=== PATIENT | male | born 1940 | race Caucasian/White ===

== ENCOUNTER 2020-10-16 13:32 | Inpatient (IN) ==
[2020-10-16] MEDS ORDERED: AZITHROMYCIN INJ 500 MG in SODIUM CHLORIDE 0.9% 250 ML IV STA (14:06)
[2020-10-16] MEDS ORDERED: cefTRIAXone 1,000 MG in SODIUM CHLORIDE 0.9% 100 ML IV STA (14:06)
[2020-10-16] MEDS ORDERED: ENOXAPARIN 100 MG/ML SYRINGE SUBCUT STA (14:32)
[2020-10-16] MEDS ORDERED: hydrALAZINE 20 MG/1 ML VIAL IV PRN (15:30)
[2020-10-16] MEDS ORDERED: DEXTROSE 50% 25 GM/50 ML VIAL IV PRN (15:30)
[2020-10-16] MEDS ORDERED: GLUCAGON 1 MG VIAL IM PRN (15:30)
[2020-10-16] MEDS ORDERED: MELATONIN 3 MG TABLET PO PRN (15:30)
[2020-10-16] MEDS ORDERED: ZALEPLON 5 MG CAPSULE PO PRN (15:30)
[2020-10-16] MEDS ORDERED: ONDANSETRON 4 MG/2 ML VIAL IV PRN (15:30)
[2020-10-16 16:03] LABS: Hematocrit 37.6 VOL% (42.0-52.0); Hemoglobin 12.4 GM/DL (14.0-18.0); Immature Granulocytes % 0.6 %; Immature Granulocytes Absolute 0.03 #; Lymphocytes # 0.3 10*3/uL (1.4-4.0); Lymphocytes % 6.2 % (21.2-54.2); Mean Corpuscular Volume 93.3 FL (87-102); Mean Platelet Volume 11.1 FL (9.6-12.0); Monocytes % 1.9 % (1.7-12.7); Neutrophils % 91.3 % (38.7-73.9); Platelet Count 142 T/CUMM (130-400); Red Blood Count 4.03 MC/CUMM (3.8-5.5); Red Cell Distribution Width 14.1 % (9.3-17.3); White Blood Count 5.3 T/CUMM (4-12)
[2020-10-16 16:16] LABS: Albumin 2.9 G/DL (3.4-5.0); Bilirubin,Total 0.9 MG/DL (0.2-1.0); Calcium 8.4 MG/DL (8.5-10.1); Ferritin 1305.7 ng/ml (26-388); Osmolality,Calculated 296.3 MOS/KG (273-304); Total Protein 7.5 G/DL (6.4-8.3)
[2020-10-16 16:29] LABS: Atypical Lymphocytes Few; Band Neutrophils 5 % (0-10); Lymphocytes 7 % (20-55); Platelet Estimate Adequate; Segmented Neutrophils 86 % (50-85); Total Cells Counted 100
[2020-10-16] MEDS: ENOXAPARIN 30 MG/0.3 ML SYRINGE SUBCUT SCH ×2 (20:48→21:13)
[2020-10-16] MEDS: FAMOTIDINE 20 MG TABLET PO SCH (20:48)
[2020-10-16] MEDS: ASCORBIC ACID 500 MG TABLET PO SCH (20:48)
[2020-10-16] MEDS: SODIUM CHLORIDE 0.9% 1,000 ML IV SCH (20:48)
[2020-10-16] MEDS: TERAZOSIN 5 MG CAPSULE PO SCH (22:08)
[2020-10-16] MEDS: carvediloL 6.25 MG TABLET PO SCH (22:08)
[2020-10-16] MEDS: DEXAMETHASONE 4 MG/1 ML VIAL IV SCH (22:14)
[2020-10-17] MEDS: SODIUM CHLORIDE 0.9% 1,000 ML IV SCH ×4 (03:35→20:30)
[2020-10-17 06:14] LABS: Hematocrit 35.5 VOL% (42.0-52.0); Hemoglobin 11.7 GM/DL (14.0-18.0); Immature Granulocytes % 1.3 %; Immature Granulocytes Absolute 0.07 #; Lymphocytes # 0.3 10*3/uL (1.4-4.0); Lymphocytes % 5.8 % (21.2-54.2); Mean Corpuscular Volume 94.2 FL (87-102); Mean Platelet Volume 11.6 FL (9.6-12.0); Monocytes % 3.6 % (1.7-12.7); Neutrophils % 89.3 % (38.7-73.9); Platelet Count 137 T/CUMM (130-400); Red Blood Count 3.77 MC/CUMM (3.8-5.5); Red Cell Distribution Width 14.1 % (9.3-17.3); White Blood Count 5.2 T/CUMM (4-12)
[2020-10-17 06:40] LABS: Albumin 2.3 G/DL (3.4-5.0); Bilirubin,Total 0.6 MG/DL (0.2-1.0); Calcium 8.1 MG/DL (8.5-10.1); Ferritin 1371.7 ng/ml (26-388); Osmolality,Calculated 305.7 MOS/KG (273-304); Total Protein 6.7 G/DL (6.4-8.3)
[2020-10-17 06:56] LABS: Hypochromasia Slight; Microcytosis 1+
[2020-10-17 06:57] LABS: Ovalocytes Few; Platelet Estimate Adequate
[2020-10-17 08:06] LABS: Sedimentation Rate-Westergren 69 MM/HR (0-20)
[2020-10-17] MEDS ORDERED: PANTOPRAZOLE 40 MG TABLET PO SCH (09:00)
[2020-10-17] MEDS ORDERED: REMDESIVIR 200 MG in SODIUM CHLORIDE 0.9% 210 ML IV ONE (09:00)
[2020-10-17] MEDS: AZITHROMYCIN 250 MG TABLET PO SCH (09:37)
[2020-10-17] MEDS: CETIRIZINE 10 MG TABLET PO SCH (09:38)
[2020-10-17] MEDS: FAMOTIDINE 20 MG TABLET PO SCH ×2 (09:38→20:15)
[2020-10-17] MEDS: ASCORBIC ACID 500 MG TABLET PO SCH ×2 (09:38→20:15)
[2020-10-17] MEDS: ENOXAPARIN 30 MG/0.3 ML SYRINGE SUBCUT SCH (09:38)
[2020-10-17] MEDS: ZINC GLUCONATE 50 MG TABLET PO SCH (09:39)
[2020-10-17] MEDS: CHOLECALCIFEROL 1,000 UNIT TABLET PO SCH (09:39)
[2020-10-17] MEDS: carvediloL 6.25 MG TABLET PO SCH ×2 (10:23→17:26)
[2020-10-17] MEDS ORDERED: SODIUM CHLORIDE 0.9% 1,000 ML IV PRN (14:40)
[2020-10-17] MEDS: cefTRIAXone 1,000 MG in SYRINGE 1 EACH IV SCH (15:04)
[2020-10-17] MEDS: TERAZOSIN 5 MG CAPSULE PO SCH (20:15)
[2020-10-17] MEDS: DEXAMETHASONE 4 MG/1 ML VIAL IV SCH (20:15)
[2020-10-17] MEDS: ATORVASTATIN 10 MG TABLET PO SCH (20:15)
[2020-10-18] MEDS ORDERED: SODIUM BICARBONATE 50 MEQ/50 ML SYRINGE IV ONE (01:04)
[2020-10-18] MEDS ORDERED: EPINEPHrine 1 MG/10 ML SYRINGE ONE (01:04)
[2020-10-18] MEDS ORDERED: ETOMIDATE 20 MG/10 ML VIAL IV ONE ×2 (01:04→01:21)
[2020-10-18] MEDS ORDERED: ROCURONIUM 100 MG/10 ML VIAL IV ONE (01:21)
[2020-10-18] MEDS ORDERED: METOPROLOL TARTRATE 5 MG/5 ML VIAL IV ONE ×2 (01:30→01:34)
[2020-10-18] MEDS ORDERED: DIGOXIN 0.5 MG/2 ML AMP IV ONE ×2 (03:06→09:15)
[2020-10-18 03:25] LABS: Allen Test Positive; Pt O2 Delivery Device Ventilator
[2020-10-18 03:26] LABS: ABG Base Excess -7.1 MMOL/L (-2.5-2.5); ABG HCO3 18.6 MMOL/L (20-26); ABG Oxygen Saturation 92.6 % (95-100); ABG PCO2 42.3 MM HG (35-48); ABG PH 7.273 (7.35-7.45); ABG PO2 76.7 MM HG (80-95); ABG TCO2 17.7 MMOL/L (23-27)
[2020-10-18 03:42] LABS: Basophils % 0.2 % (0.0-0.8); Hematocrit 33.4 VOL% (42.0-52.0); Hemoglobin 10.8 GM/DL (14.0-18.0); Immature Granulocytes % 1.4 %; Immature Granulocytes Absolute 0.16 #; Lymphocytes # 0.2 10*3/uL (1.4-4.0); Lymphocytes % 1.6 % (21.2-54.2); Mean Corpuscular HGB Conc 32.3 GM/DL (32-36); Mean Corpuscular Volume 94.9 FL (87-102); Mean Platelet Volume 11.9 FL (9.6-12.0); Monocytes % 2.5 % (1.7-12.7); Neutrophils % 94.3 % (38.7-73.9); Platelet Count 142 T/CUMM (130-400); Red Blood Count 3.52 MC/CUMM (3.8-5.5); Red Cell Distribution Width 14.5 % (9.3-17.3); White Blood Count 11.3 T/CUMM (4-12)
[2020-10-18 04:02] LABS: CKMB % 1.5 %; Hypochromasia 1+; Lymphocytes 1 % (20-55); Microcytosis 1+; Platelet Estimate Adequate; Segmented Neutrophils 98 % (50-85); Total Cells Counted 100
[2020-10-18 04:06] LABS: Troponin I 0.207 NG/ML (0.00-0.045)
[2020-10-18 04:07] LABS: Bilirubin,Total 0.4 MG/DL (0.2-1.0); Calcium 7.3 MG/DL (8.5-10.1); Osmolality,Calculated 315.4 MOS/KG (273-304)
[2020-10-18] MEDS: fentaNYL INJ 1,250 MCG in SODIUM CHLORIDE 0.9% 225 ML IV PRN ×6 (05:05→22:30)
[2020-10-18] MEDS: MIDAZOLAM 100 MG in SODIUM CHLORIDE 0.9% 80 ML IV PRN ×2 (05:05→15:47)
[2020-10-18] MEDS: PHENYLEPHRINE DRIP 40 MG/250 ML PREMIX IV PRN ×6 (05:40→21:34)
[2020-10-18] MEDS ORDERED: ASPIRIN EC 81 MG TABLET PO SCH (09:00)
[2020-10-18] MEDS ORDERED: amLODIPine 5 MG TABLET PO SCH (09:00)
[2020-10-18] MEDS: ENOXAPARIN 30 MG/0.3 ML SYRINGE SUBCUT SCH (09:13)
[2020-10-18] MEDS: ASCORBIC ACID 500 MG TABLET PO SCH ×2 (09:13→21:32)
[2020-10-18] MEDS: CHOLECALCIFEROL 1,000 UNIT TABLET PO SCH (09:13)
[2020-10-18] MEDS: FAMOTIDINE 20 MG TABLET PO SCH (09:13)
[2020-10-18] MEDS: FINASTERIDE 5 MG TABLET PO SCH (09:13)
[2020-10-18] MEDS: AZITHROMYCIN 250 MG TABLET PO SCH (09:13)
[2020-10-18] MEDS: CETIRIZINE 10 MG TABLET PO SCH (10:41)
[2020-10-18] MEDS: carvediloL 6.25 MG TABLET PO SCH (10:47)
[2020-10-18] MEDS: SODIUM CHLORIDE 0.9% 1,000 ML IV SCH ×2 (11:07→15:22)
[2020-10-18] MEDS: REMDESIVIR 100 MG in SODIUM CHLORIDE 0.9% 100 ML IV SCH (11:30)
[2020-10-18] MEDS: cefTRIAXone 1,000 MG in SYRINGE 1 EACH IV SCH (16:33)
[2020-10-18] MEDS: ENOXAPARIN 100 MG/ML SYRINGE SUBCUT SCH (16:33)
[2020-10-18] MEDS: DEXAMETHASONE 4 MG/1 ML VIAL IV SCH (21:32)
[2020-10-18] MEDS: TERAZOSIN 5 MG CAPSULE PO SCH (21:32)
[2020-10-18] MEDS: ATORVASTATIN 10 MG TABLET PO SCH (21:32)
[2020-10-19] MEDS: PHENYLEPHRINE DRIP 40 MG/250 ML PREMIX IV PRN ×4 (02:10→20:30)
[2020-10-19] MEDS: fentaNYL INJ 1,250 MCG in SODIUM CHLORIDE 0.9% 225 ML IV PRN ×6 (02:15→22:17)
[2020-10-19] MEDS: MIDAZOLAM 100 MG in SODIUM CHLORIDE 0.9% 80 ML IV PRN ×2 (02:45→14:53)
[2020-10-19 04:17] LABS: Basophils % 0.1 % (0.0-0.8); Hematocrit 34.4 VOL% (42.0-52.0); Hemoglobin 11.2 GM/DL (14.0-18.0); Immature Granulocytes % 0.9 %; Lymphocytes # 0.3 10*3/uL (1.4-4.0); Lymphocytes % 2.8 % (21.2-54.2); Mean Corpuscular HGB Conc 32.6 GM/DL (32-36); Mean Corpuscular Volume 95.6 FL (87-102); Mean Platelet Volume 11.8 FL (9.6-12.0); Monocytes % 2.3 % (1.7-12.7); Neutrophils % 93.9 % (38.7-73.9); Platelet Count 157 T/CUMM (130-400); Red Cell Distribution Width 14.6 % (9.3-17.3); White Blood Count 10.6 T/CUMM (4-12)
[2020-10-19 04:32] LABS: ABG Base Excess -7.6 MMOL/L (-2.5-2.5); ABG HCO3 18.4 MMOL/L (20-26); ABG Oxygen Saturation 98.9 % (95-100); ABG PCO2 36.7 MM HG (35-48); ABG PH 7.304 (7.35-7.45); ABG TCO2 15.8 MMOL/L (23-27); Allen Test Positive; Pt O2 Delivery Device Ventilator
[2020-10-19 04:36] LABS: Albumin 2.1 G/DL (3.4-5.0); Bilirubin,Total 0.4 MG/DL (0.2-1.0); Calcium 7.6 MG/DL (8.5-10.1); Osmolality,Calculated 325.6 MOS/KG (273-304); Total Protein 5.9 G/DL (6.4-8.3)
[2020-10-19 04:41] LABS: Hypochromasia 1+; Lymphocytes 1 % (20-55); Microcytosis 1+; Ovalocytes Slight; Platelet Estimate Adequate; Segmented Neutrophils 98 % (50-85); Total Cells Counted 100
[2020-10-19] MEDS: SODIUM CHLORIDE 0.9% 1,000 ML IV SCH ×2 (04:42→18:37)
[2020-10-19] MEDS: REMDESIVIR 100 MG in SODIUM CHLORIDE 0.9% 100 ML IV SCH (08:30)
[2020-10-19] MEDS: FINASTERIDE 5 MG TABLET PO SCH (08:32)
[2020-10-19] MEDS: CETIRIZINE 10 MG TABLET PO SCH (08:32)
[2020-10-19] MEDS: FAMOTIDINE 20 MG TABLET PO SCH (08:32)
[2020-10-19] MEDS: ASPIRIN CHEW 81 MG TABLET PO SCH (08:32)
[2020-10-19] MEDS: ZINC GLUCONATE 50 MG TABLET PO SCH (08:32)
[2020-10-19] MEDS: AZITHROMYCIN 250 MG TABLET PO SCH (08:32)
[2020-10-19] MEDS: ASCORBIC ACID 500 MG TABLET PO SCH ×2 (08:32→21:30)
[2020-10-19] MEDS: CHOLECALCIFEROL 1,000 UNIT TABLET PO SCH (08:33)
[2020-10-19] MEDS: ENOXAPARIN 100 MG/ML SYRINGE SUBCUT SCH (16:10)
[2020-10-19] MEDS: cefTRIAXone 1,000 MG in SYRINGE 1 EACH IV SCH (18:11)
[2020-10-19] MEDS: TERAZOSIN 5 MG CAPSULE PO SCH (21:30)
[2020-10-19] MEDS: ATORVASTATIN 10 MG TABLET PO SCH (21:30)
[2020-10-19] MEDS: DEXAMETHASONE 4 MG/1 ML VIAL IV SCH (21:46)
[2020-10-20 00:17] LABS: Calcium 7.4 MG/DL (8.5-10.1); Osmolality,Calculated 326.4 MOS/KG (273-304)
[2020-10-20] MEDS: fentaNYL INJ 2,500 MCG in SODIUM CHLORIDE 0.9% 450 ML IV PRN ×3 (00:30→14:51)
[2020-10-20] MEDS: MIDAZOLAM 100 MG in SODIUM CHLORIDE 0.9% 80 ML IV PRN ×2 (01:30→13:46)
[2020-10-20] MEDS: PHENYLEPHRINE DRIP 40 MG/250 ML PREMIX IV PRN ×3 (02:04→12:27)
[2020-10-20 04:06] LABS: Allen Test Positive; Pt O2 Delivery Device Ventilator
[2020-10-20 04:09] LABS: ABG Base Excess -9.1 MMOL/L (-2.5-2.5); ABG HCO3 16.5 MMOL/L (20-26); ABG Oxygen Saturation 95.5 % (95-100); ABG PH 7.292 (7.35-7.45); ABG PO2 87.8 MM HG (80-95); ABG TCO2 17.6 MMOL/L (23-27)
[2020-10-20 05:03] LABS: Basophils % 0.1 % (0.0-0.8); Hematocrit 38.2 VOL% (42.0-52.0); Immature Granulocytes % 1.3 %; Lymphocytes # 0.4 10*3/uL (1.4-4.0); Lymphocytes % 2.6 % (21.2-54.2); Mean Corpuscular HGB Conc 31.4 GM/DL (32-36); Mean Corpuscular Volume 97.2 FL (87-102); Mean Platelet Volume 11.6 FL (9.6-12.0); Monocytes % 3.2 % (1.7-12.7); Neutrophils % 92.8 % (38.7-73.9); Platelet Count 175 T/CUMM (130-400); Red Blood Count 3.93 MC/CUMM (3.8-5.5); Red Cell Distribution Width 15.2 % (9.3-17.3); White Blood Count 14.8 T/CUMM (4-12)
[2020-10-20 05:24] LABS: Calcium 7.5 MG/DL (8.5-10.1); Osmolality,Calculated 324.4 MOS/KG (273-304)
[2020-10-20 05:30] LABS: Burr Cells Slight; Hypochromasia 1+; Lymphocytes 2 % (20-55); Microcytosis 1+; Ovalocytes Slight; Platelet Estimate Adequate; Segmented Neutrophils 97 % (50-85); Total Cells Counted 100
[2020-10-20 05:46] LABS: Ferritin 1147.9 ng/ml (26-388)
[2020-10-20] MEDS: DIGOXIN 0.5 MG/2 ML AMP IV SCH (08:40)
[2020-10-20] MEDS: REMDESIVIR 100 MG in SODIUM CHLORIDE 0.9% 100 ML IV SCH (08:40)
[2020-10-20] MEDS: ASPIRIN CHEW 81 MG TABLET PO SCH (08:41)
[2020-10-20] MEDS: CETIRIZINE 10 MG TABLET PO SCH (08:41)
[2020-10-20] MEDS: ASCORBIC ACID 500 MG TABLET PO SCH ×2 (08:41→20:58)
[2020-10-20] MEDS: AZITHROMYCIN 250 MG TABLET PO SCH (08:41)
[2020-10-20] MEDS: FAMOTIDINE 20 MG TABLET PO SCH (08:42)
[2020-10-20] MEDS: CHOLECALCIFEROL 1,000 UNIT TABLET PO SCH (08:42)
[2020-10-20] MEDS: FINASTERIDE 5 MG TABLET PO SCH (08:44)
[2020-10-20] MEDS: cefTRIAXone 1,000 MG in SYRINGE 1 EACH IV SCH (14:18)
[2020-10-20] MEDS: ENOXAPARIN 100 MG/ML SYRINGE SUBCUT SCH (14:51)
[2020-10-20] MEDS ORDERED: PHENYLEPHRINE INJ 160 MG in SODIUM CHLORIDE 0.9% 234 ML IV PRN (14:58)
[2020-10-20] MEDS: PHENYLEPHRINE INJ 160 MG in DEXTROSE 5% 234 ML IV PRN (17:06)
[2020-10-20] MEDS: TERAZOSIN 5 MG CAPSULE PO SCH (20:58)
[2020-10-20] MEDS: ATORVASTATIN 10 MG TABLET PO SCH (20:59)
[2020-10-20] MEDS: DEXAMETHASONE 4 MG/1 ML VIAL IV SCH (20:59)
[2020-10-20] MEDS: fentaNYL INJ 2,500 MCG in DEXTROSE 5% 75 ML IV PRN (22:41)
[2020-10-21] MEDS: MIDAZOLAM 100 MG in SODIUM CHLORIDE 0.9% 80 ML IV PRN (01:25)
[2020-10-21 03:15] LABS: ABG Base Excess -10.7 MMOL/L (-2.5-2.5); ABG HCO3 16.3 MMOL/L (20-26); ABG Oxygen Saturation 97.3 % (95-100); ABG PCO2 40.2 MM HG (35-48); ABG PH 7.225 (7.35-7.45); ABG PO2 109.8 MM HG (80-95); ABG TCO2 17.5 MMOL/L (23-27)
[2020-10-21 04:34] LABS: Basophils % 0.2 % (0.0-0.8); Hematocrit 38.1 VOL% (42.0-52.0); Hemoglobin 11.6 GM/DL (14.0-18.0); Immature Granulocytes Absolute 0.34 #; Lymphocytes # 0.3 10*3/uL (1.4-4.0); Lymphocytes % 1.9 % (21.2-54.2); Mean Corpuscular HGB Conc 30.4 GM/DL (32-36); Mean Platelet Volume 11.6 FL (9.6-12.0); Monocytes % 2.9 % (1.7-12.7); Platelet Count 210 T/CUMM (130-400); Red Blood Count 3.81 MC/CUMM (3.8-5.5); Red Cell Distribution Width 15.9 % (9.3-17.3); White Blood Count 16.8 T/CUMM (4-12)
[2020-10-21 04:41] LABS: Calcium 7.8 MG/DL (8.5-10.1); Osmolality,Calculated 331.4 MOS/KG (273-304)
[2020-10-21 04:53] LABS: Nucleated Red Blood Cells 1 (0-5); Segmented Neutrophils 97 % (50-85); Total Cells Counted 100
[2020-10-21 04:54] LABS: Platelet Estimate Adequate
[2020-10-21 04:55] LABS: Hypochromasia 1+
[2020-10-21 04:56] LABS: Microcytosis 1+
[2020-10-21] MEDS: fentaNYL INJ 2,500 MCG in DEXTROSE 5% 75 ML IV PRN (05:38)
[2020-10-21] MEDS: PHENYLEPHRINE DRIP 40 MG/250 ML PREMIX IV PRN (06:21)
[2020-10-21] MEDS ORDERED: SODIUM POLYSTYRENE SULFATE 15 GM/60 ML BOTTLE PO ONE (08:06)
[2020-10-21] MEDS: REMDESIVIR 100 MG in SODIUM CHLORIDE 0.9% 100 ML IV SCH (08:30)
[2020-10-21] MEDS: ZINC GLUCONATE 50 MG TABLET PO SCH (08:44)
[2020-10-21] MEDS: ASCORBIC ACID 500 MG TABLET PO SCH ×2 (08:44→20:04)
[2020-10-21] MEDS: FAMOTIDINE 20 MG TABLET PO SCH (08:44)
[2020-10-21] MEDS: ASPIRIN CHEW 81 MG TABLET PO SCH (08:44)
[2020-10-21] MEDS: CHOLECALCIFEROL 1,000 UNIT TABLET PO SCH (08:44)
[2020-10-21] MEDS: FINASTERIDE 5 MG TABLET PO SCH (08:44)
[2020-10-21] MEDS: CETIRIZINE 10 MG TABLET PO SCH (08:45)
[2020-10-21] MEDS: PHENYLEPHRINE INJ 160 MG in DEXTROSE 5% 234 ML IV PRN ×2 (12:08→23:26)
[2020-10-21] MEDS ORDERED: SODIUM BICARBONATE 50 MEQ/50 ML VIAL IV ONE (13:03)
[2020-10-21] MEDS: cefTRIAXone 1,000 MG in SYRINGE 1 EACH IV SCH (14:46)
[2020-10-21] MEDS: ENOXAPARIN 100 MG/ML SYRINGE SUBCUT SCH (14:47)
[2020-10-21] MEDS: DEXAMETHASONE 4 MG/1 ML VIAL IV SCH (20:03)
[2020-10-21] MEDS: TERAZOSIN 5 MG CAPSULE PO SCH (20:04)
[2020-10-21] MEDS: ATORVASTATIN 10 MG TABLET PO SCH (20:04)
[2020-10-22 03:46] LABS: ABG Base Excess -9.2 MMOL/L (-2.5-2.5); ABG HCO3 17.1 MMOL/L (20-26); ABG Oxygen Saturation 99.2 % (95-100); ABG PCO2 43.7 MM HG (35-48); ABG TCO2 16.6 MMOL/L (23-27)
[2020-10-22 05:56] LABS: Basophils % 0.3 % (0.0-0.8); Hematocrit 40.3 VOL% (42.0-52.0); Hemoglobin 12.3 GM/DL (14.0-18.0); Immature Granulocytes Absolute 0.54 #; Lymphocytes # 0.3 10*3/uL (1.4-4.0); Lymphocytes % 2.1 % (21.2-54.2); Mean Corpuscular HGB Conc 30.5 GM/DL (32-36); Mean Platelet Volume 12.1 FL (9.6-12.0); Monocytes % 2.6 % (1.7-12.7); Platelet Count 167 T/CUMM (130-400); Red Blood Count 4.03 MC/CUMM (3.8-5.5); Red Cell Distribution Width 16.1 % (9.3-17.3); White Blood Count 13.6 T/CUMM (4-12)
[2020-10-22 06:14] LABS: Calcium 8.3 MG/DL (8.5-10.1); Osmolality,Calculated 330.7 MOS/KG (273-304)
[2020-10-22 07:50] LABS: Hypochromasia 1+; Lymphocytes 2 % (20-55); Segmented Neutrophils 94 % (50-85); Total Cells Counted 100
[2020-10-22 07:51] LABS: Microcytosis 1+; Platelet Estimate Adequate
[2020-10-22] MEDS: FINASTERIDE 5 MG TABLET PO SCH (08:29)
[2020-10-22] MEDS: ASCORBIC ACID 500 MG TABLET PO SCH ×2 (08:29→21:07)
[2020-10-22] MEDS: FAMOTIDINE 20 MG TABLET PO SCH (08:29)
[2020-10-22] MEDS: CETIRIZINE 10 MG TABLET PO SCH (08:29)
[2020-10-22] MEDS: ASPIRIN CHEW 81 MG TABLET PO SCH (08:29)
[2020-10-22] MEDS: CHOLECALCIFEROL 1,000 UNIT TABLET PO SCH (08:29)
[2020-10-22] MEDS: DIGOXIN 0.5 MG/2 ML AMP IV SCH (08:29)
[2020-10-22] MEDS: SODIUM BICARBONATE 50 MEQ/50 ML VIAL IV SCH ×2 (08:38→16:17)
[2020-10-22] MEDS ORDERED: CISATRACURIUM 10 MG/5 ML VIAL IV ONE (11:30)
[2020-10-22] MEDS: PHENYLEPHRINE INJ 160 MG in DEXTROSE 5% 234 ML IV PRN (11:39)
[2020-10-22] MEDS ORDERED: SODIUM POLYSTYRENE SULFATE 15 GM/60 ML BOTTLE PO ONE (13:27)
[2020-10-22] MEDS: MIDAZOLAM 100 MG in SODIUM CHLORIDE 0.9% 80 ML IV PRN (14:15)
[2020-10-22 14:29] LABS: ABG Base Excess -10.5 MMOL/L (-2.5-2.5); ABG HCO3 19.8 MMOL/L (20-26); ABG PCO2 62.6 MM HG (35-48); ABG PO2 94.1 MM HG (80-95); ABG TCO2 21.7 MMOL/L (23-27); Allen Test Positive; Pt O2 Delivery Device Ventilator
[2020-10-22 14:32] LABS: ABG Oxygen Saturation 21.7 % (95-100); ABG PH 7.117 (7.35-7.45)
[2020-10-22] MEDS: cefTRIAXone 1,000 MG in SYRINGE 1 EACH IV SCH (15:00)
[2020-10-22] MEDS: FUROSEMIDE 40 MG/4 ML VIAL IV SCH ×2 (15:02→21:07)
[2020-10-22] MEDS: ENOXAPARIN 100 MG/ML SYRINGE SUBCUT SCH (16:16)
[2020-10-22] MEDS: CISATRACURIUM 200 MG in SODIUM CHLORIDE 0.9% 180 ML IV PRN (16:17)
[2020-10-22] MEDS: fentaNYL INJ 2,500 MCG in DEXTROSE 5% 75 ML IV PRN ×2 (16:37→23:28)
[2020-10-22] MEDS: DEXAMETHASONE 4 MG/1 ML VIAL IV SCH (21:06)
[2020-10-22] MEDS: ATORVASTATIN 10 MG TABLET PO SCH (21:07)
[2020-10-22] MEDS: TERAZOSIN 5 MG CAPSULE PO SCH (21:07)
[2020-10-23] MEDS: SODIUM BICARBONATE 50 MEQ/50 ML VIAL IV SCH ×2 (01:57→08:22)
[2020-10-23] MEDS: fentaNYL INJ 2,500 MCG in DEXTROSE 5% 75 ML IV PRN ×5 (03:44→23:47)
[2020-10-23] MEDS: MIDAZOLAM 100 MG in SODIUM CHLORIDE 0.9% 80 ML IV PRN ×2 (03:49→16:03)
[2020-10-23 04:47] LABS: ABG Base Excess -6.6 MMOL/L (-2.5-2.5); ABG HCO3 20.8 MMOL/L (20-26); ABG Oxygen Saturation 99.2 % (95-100); ABG PCO2 49.8 MM HG (35-48); ABG PH 7.239 (7.35-7.45); ABG PO2 243.8 MM HG (80-95); ABG TCO2 22.3 MMOL/L (23-27); Allen Test Positive; Pt O2 Delivery Device Ventilator
[2020-10-23] MEDS: FUROSEMIDE 40 MG/4 ML VIAL IV SCH (06:00)
[2020-10-23 06:02] LABS: Basophils % 0.3 % (0.0-0.8); Hematocrit 39.7 VOL% (42.0-52.0); Hemoglobin 11.8 GM/DL (14.0-18.0); Immature Granulocytes % 2.6 %; Immature Granulocytes Absolute 0.34 #; Lymphocytes # 0.3 10*3/uL (1.4-4.0); Lymphocytes % 1.9 % (21.2-54.2); Mean Corpuscular HGB Conc 29.7 GM/DL (32-36); Mean Corpuscular Volume 103.4 FL (87-102); Monocytes % 3.6 % (1.7-12.7); Neutrophils % 91.6 % (38.7-73.9); Platelet Count 185 T/CUMM (130-400); Red Blood Count 3.84 MC/CUMM (3.8-5.5); Red Cell Distribution Width 16.3 % (9.3-17.3); White Blood Count 13.3 T/CUMM (4-12)
[2020-10-23 07:11] LABS: Albumin 1.8 G/DL (3.4-5.0); Bilirubin,Total 0.5 MG/DL (0.2-1.0); Calcium 8.4 MG/DL (8.5-10.1); Osmolality,Calculated 341.3 MOS/KG (273-304); Total Protein 5.9 G/DL (6.4-8.3)
[2020-10-23 07:26] LABS: Segmented Neutrophils 96 % (50-85); Total Cells Counted 100
[2020-10-23 07:31] LABS: Platelet Estimate Adequate; Polychromasia Slight
[2020-10-23 07:32] LABS: Macrocytosis Slight
[2020-10-23] MEDS: FINASTERIDE 5 MG TABLET PO SCH (08:21)
[2020-10-23] MEDS: FAMOTIDINE 20 MG TABLET PO SCH (08:21)
[2020-10-23] MEDS: ASPIRIN CHEW 81 MG TABLET PO SCH (08:21)
[2020-10-23] MEDS: ASCORBIC ACID 500 MG TABLET PO SCH ×2 (08:21→20:16)
[2020-10-23] MEDS: CETIRIZINE 10 MG TABLET PO SCH (08:22)
[2020-10-23] MEDS: CHOLECALCIFEROL 1,000 UNIT TABLET PO SCH (08:22)
[2020-10-23] MEDS: CISATRACURIUM 200 MG in SODIUM CHLORIDE 0.9% 180 ML IV PRN ×2 (08:47→21:44)
[2020-10-23] MEDS: PHENYLEPHRINE INJ 160 MG in DEXTROSE 5% 234 ML IV PRN (09:05)
[2020-10-23] MEDS ORDERED: BISACODYL 5 MG TABLET PO PRN (10:56)
[2020-10-23] MEDS: METOCLOPRAMIDE 10 MG/2 ML VIAL IV SCH ×2 (12:15→18:30)
[2020-10-23] MEDS: SODIUM CHLORIDE 23.4% CONC INJ 38.5 MEQ in STERILE WATER INJ 1,000 ML IV SCH ×2 (12:31→22:49)
[2020-10-23] MEDS ORDERED: SODIUM POLYSTYRENE SULFATE 15 GM/60 ML BOTTLE PO ONE (14:46)
[2020-10-23] MEDS: cefTRIAXone 1,000 MG in SYRINGE 1 EACH IV SCH (15:41)
[2020-10-23] MEDS: ENOXAPARIN 100 MG/ML SYRINGE SUBCUT SCH (15:55)
[2020-10-23] MEDS: DOCUSATE SODIUM 100 MG/10 ML UDCUP PO SCH (20:16)
[2020-10-23] MEDS: ATORVASTATIN 10 MG TABLET PO SCH (20:16)
[2020-10-23] MEDS: DEXAMETHASONE 4 MG/1 ML VIAL IV SCH (20:17)
[2020-10-24] MEDS: METOCLOPRAMIDE 10 MG/2 ML VIAL IV SCH ×4 (00:15→18:12)
[2020-10-24] MEDS: MIDAZOLAM 100 MG in SODIUM CHLORIDE 0.9% 80 ML IV PRN ×3 (03:00→23:46)
[2020-10-24] MEDS: fentaNYL INJ 2,500 MCG in DEXTROSE 5% 75 ML IV PRN ×3 (04:21→21:19)
[2020-10-24 04:26] LABS: Basophils % 0.2 % (0.0-0.8); Hematocrit 39.2 VOL% (42.0-52.0); Hemoglobin 11.9 GM/DL (14.0-18.0); Immature Granulocytes % 4.5 %; Lymphocytes # 0.2 10*3/uL (1.4-4.0); Lymphocytes % 1.2 % (21.2-54.2); Mean Corpuscular HGB Conc 30.4 GM/DL (32-36); Mean Corpuscular Volume 101.6 FL (87-102); Mean Platelet Volume 12.2 FL (9.6-12.0); Monocytes % 4.3 % (1.7-12.7); Neutrophils % 89.8 % (38.7-73.9); Platelet Count 207 T/CUMM (130-400); Red Blood Count 3.86 MC/CUMM (3.8-5.5); Red Cell Distribution Width 16.1 % (9.3-17.3); White Blood Count 13.4 T/CUMM (4-12)
[2020-10-24 04:50] LABS: Calcium 8.3 MG/DL (8.5-10.1)
[2020-10-24 04:59] LABS: ABG Base Excess -7.4 MMOL/L (-2.5-2.5); ABG HCO3 19.6 MMOL/L (20-26); ABG Oxygen Saturation 96.2 % (95-100); ABG PCO2 45.4 MM HG (35-48); ABG PH 7.253 (7.35-7.45); ABG PO2 92.5 MM HG (80-95)
[2020-10-24 06:27] LABS: Hypochromasia 2+; Lymphocytes 2 % (20-55); Platelet Estimate Normal; Segmented Neutrophils 90 % (50-85); Total Cells Counted 100
[2020-10-24] MEDS: SODIUM CHLORIDE 23.4% CONC INJ 38.5 MEQ in STERILE WATER INJ 1,000 ML IV SCH (06:30)
[2020-10-24] MEDS: FINASTERIDE 5 MG TABLET PO SCH (08:11)
[2020-10-24] MEDS: ASPIRIN CHEW 81 MG TABLET PO SCH (08:11)
[2020-10-24] MEDS: ASCORBIC ACID 500 MG TABLET PO SCH ×2 (08:11→21:21)
[2020-10-24] MEDS: DOCUSATE SODIUM 100 MG/10 ML UDCUP PO SCH ×2 (08:11→21:17)
[2020-10-24] MEDS: CHOLECALCIFEROL 1,000 UNIT TABLET PO SCH (08:12)
[2020-10-24] MEDS: FAMOTIDINE 20 MG TABLET PO SCH (08:12)
[2020-10-24] MEDS: CETIRIZINE 10 MG TABLET PO SCH (08:12)
[2020-10-24] MEDS: DIGOXIN 0.5 MG/2 ML AMP IV SCH (08:13)
[2020-10-24] MEDS: PHENYLEPHRINE INJ 160 MG in DEXTROSE 5% 234 ML IV PRN (11:06)
[2020-10-24] MEDS: SODIUM BICARB INJ 50 MEQ in DEXTROSE 5% 1,000 ML IV SCH ×2 (11:06→21:18)
[2020-10-24] MEDS: CISATRACURIUM 200 MG in SODIUM CHLORIDE 0.9% 180 ML IV PRN (11:07)
[2020-10-24] MEDS: ENOXAPARIN 100 MG/ML SYRINGE SUBCUT SCH (16:30)
[2020-10-24] MEDS: ALBUMIN 25% 25 GM in PREMIX 1 EACH IV SCH (21:18)
[2020-10-24] MEDS: DEXAMETHASONE 4 MG/1 ML VIAL IV SCH (21:20)
[2020-10-24] MEDS: ATORVASTATIN 10 MG TABLET PO SCH (21:21)
[2020-10-25] MEDS: METOCLOPRAMIDE 10 MG/2 ML VIAL IV SCH ×4 (00:39→18:22)
[2020-10-25] MEDS: CISATRACURIUM 200 MG in SODIUM CHLORIDE 0.9% 180 ML IV PRN (00:53)
[2020-10-25 04:35] LABS: Allen Test Positive; Pt O2 Delivery Device Ventilator
[2020-10-25 04:42] LABS: Basophils % 0.2 % (0.0-0.8); Hematocrit 34.4 VOL% (42.0-52.0); Hemoglobin 10.4 GM/DL (14.0-18.0); Immature Granulocytes % 5.2 %; Immature Granulocytes Absolute 0.54 #; Lymphocytes # 0.2 10*3/uL (1.4-4.0); Lymphocytes % 2.2 % (21.2-54.2); Mean Corpuscular HGB Conc 30.2 GM/DL (32-36); Mean Corpuscular Volume 101.2 FL (87-102); Mean Platelet Volume 12.5 FL (9.6-12.0); Monocytes % 3.5 % (1.7-12.7); Neutrophils % 88.9 % (38.7-73.9); Platelet Count 134 T/CUMM (130-400); Red Cell Distribution Width 15.7 % (9.3-17.3); White Blood Count 10.4 T/CUMM (4-12)
[2020-10-25 04:42] LABS: ABG Base Excess -5.3 MMOL/L (-2.5-2.5); ABG Oxygen Saturation 96.5 % (95-100); ABG PCO2 47.4 MM HG (35-48); ABG PO2 98.9 MM HG (80-95)
[2020-10-25 05:08] LABS: Hypochromasia Slight; Microcytosis Slight; Ovalocytes Slight; Platelet Estimate Adequate
[2020-10-25 05:26] LABS: Calcium 7.9 MG/DL (8.5-10.1); Osmolality,Calculated 341.4 MOS/KG (273-304)
[2020-10-25 05:31] LABS: Ferritin 718.9 ng/ml (26-388)
[2020-10-25] MEDS: SODIUM BICARB INJ 50 MEQ in DEXTROSE 5% 1,000 ML IV SCH ×3 (06:26→20:32)
[2020-10-25] MEDS: DOCUSATE SODIUM 100 MG/10 ML UDCUP PO SCH ×2 (09:31→20:34)
[2020-10-25] MEDS: FAMOTIDINE 20 MG TABLET PO SCH (09:31)
[2020-10-25] MEDS: CETIRIZINE 10 MG TABLET PO SCH (09:31)
[2020-10-25] MEDS: ASPIRIN CHEW 81 MG TABLET PO SCH (09:31)
[2020-10-25] MEDS: FINASTERIDE 5 MG TABLET PO SCH (09:31)
[2020-10-25] MEDS: ASCORBIC ACID 500 MG TABLET PO SCH ×2 (09:31→20:33)
[2020-10-25] MEDS: CHOLECALCIFEROL 1,000 UNIT TABLET PO SCH (09:31)
[2020-10-25] MEDS: ALBUMIN 25% 25 GM in PREMIX 1 EACH IV SCH ×2 (09:36→20:33)
[2020-10-25] MEDS: PHENYLEPHRINE INJ 160 MG in DEXTROSE 5% 234 ML IV PRN (11:30)
[2020-10-25] MEDS: fentaNYL INJ 2,500 MCG in DEXTROSE 5% 75 ML IV PRN (15:11)
[2020-10-25] MEDS: MIDAZOLAM 100 MG in SODIUM CHLORIDE 0.9% 80 ML IV PRN (15:59)
[2020-10-25] MEDS: ENOXAPARIN 100 MG/ML SYRINGE SUBCUT SCH (16:23)
[2020-10-25] MEDS: ALBUTEROL INHALER 18 GM INH SCH ×2 (16:23→19:46)
[2020-10-25] MEDS: DEXAMETHASONE 4 MG/1 ML VIAL IV SCH (20:33)
[2020-10-25] MEDS: ATORVASTATIN 10 MG TABLET PO SCH (20:34)
[2020-10-26] MEDS: METOCLOPRAMIDE 10 MG/2 ML VIAL IV SCH ×4 (00:52→18:38)
[2020-10-26] MEDS: ALBUTEROL INHALER 18 GM INH SCH ×4 (02:20→20:39)
[2020-10-26] MEDS: MIDAZOLAM 100 MG in SODIUM CHLORIDE 0.9% 80 ML IV PRN (02:28)
[2020-10-26] MEDS: fentaNYL INJ 2,500 MCG in DEXTROSE 5% 75 ML IV PRN (02:29)
[2020-10-26 04:07] LABS: Allen Test Positive; Pt O2 Delivery Device Ventilator
[2020-10-26 04:13] LABS: ABG Base Excess -2.3 MMOL/L (-2.5-2.5); ABG HCO3 22.5 MMOL/L (20-26); ABG PCO2 45.9 MM HG (35-48); ABG PH 7.322 (7.35-7.45); ABG TCO2 22.3 MMOL/L (23-27)
[2020-10-26] MEDS: SODIUM BICARB INJ 50 MEQ in DEXTROSE 5% 1,000 ML IV SCH ×2 (06:38→17:43)
[2020-10-26] MEDS: ASCORBIC ACID 500 MG TABLET PO SCH ×2 (08:25→20:39)
[2020-10-26] MEDS: FINASTERIDE 5 MG TABLET PO SCH (08:25)
[2020-10-26] MEDS: ASPIRIN CHEW 81 MG TABLET PO SCH (08:25)
[2020-10-26] MEDS: DOCUSATE SODIUM 100 MG/10 ML UDCUP PO SCH ×2 (08:25→20:39)
[2020-10-26] MEDS: CHOLECALCIFEROL 1,000 UNIT TABLET PO SCH (08:25)
[2020-10-26] MEDS: CETIRIZINE 10 MG TABLET PO SCH (08:25)
[2020-10-26] MEDS: FAMOTIDINE 20 MG TABLET PO SCH (08:25)
[2020-10-26] MEDS: ALBUMIN 25% 25 GM in PREMIX 1 EACH IV SCH (08:28)
[2020-10-26] MEDS ORDERED: FUROSEMIDE 40 MG/4 ML VIAL IV ONE (08:45)
[2020-10-26] MEDS: methylPREDNISolone SOD SUC 40 MG/1 ML VIAL IV SCH ×2 (10:42→18:38)
[2020-10-26 10:52] LABS: Basophils % 0.1 % (0.0-0.8); Hematocrit 26.8 VOL% (42.0-52.0); Hemoglobin 8.7 GM/DL (14.0-18.0); Immature Granulocytes % 2.1 %; Immature Granulocytes Absolute 0.17 #; Lymphocytes # 0.3 10*3/uL (1.4-4.0); Mean Corpuscular HGB Conc 32.5 GM/DL (32-36); Mean Corpuscular Volume 96.1 FL (87-102); Mean Platelet Volume 12.5 FL (9.6-12.0); Monocytes % 4.6 % (1.7-12.7); Neutrophils % 90.2 % (38.7-73.9); Platelet Count 109 T/CUMM (130-400); Red Blood Count 2.79 MC/CUMM (3.8-5.5); Red Cell Distribution Width 14.7 % (9.3-17.3); White Blood Count 8.3 T/CUMM (4-12)
[2020-10-26 11:12] LABS: Hypochromasia Slight; Lymphocytes 1 % (20-55); Microcytosis Slight; Myelocytes 1 %; Segmented Neutrophils 95 % (50-85); Total Cells Counted 100
[2020-10-26 11:13] LABS: Platelet Estimate Decreased
[2020-10-26 11:17] LABS: Calcium 7.9 MG/DL (8.5-10.1); Osmolality,Calculated 338.6 MOS/KG (273-304)
[2020-10-26] MEDS: INSULIN LISPRO 100 UNIT/ML SUBCUT SCH ×2 (13:39→17:44)
[2020-10-26] MEDS: ENOXAPARIN 100 MG/ML SYRINGE SUBCUT SCH (16:16)
[2020-10-26] MEDS: ATORVASTATIN 10 MG TABLET PO SCH (20:39)
[2020-10-27] MEDS: INSULIN LISPRO 100 UNIT/ML SUBCUT SCH ×4 (00:12→18:10)
[2020-10-27] MEDS: ALBUTEROL INHALER 18 GM INH SCH ×4 (00:32→20:05)
[2020-10-27] MEDS: METOCLOPRAMIDE 10 MG/2 ML VIAL IV SCH ×4 (00:32→17:01)
[2020-10-27] MEDS: methylPREDNISolone SOD SUC 40 MG/1 ML VIAL IV SCH ×3 (00:32→17:01)
[2020-10-27 03:21] LABS: ABG Base Excess 0.2 MMOL/L (-2.5-2.5); ABG HCO3 24.6 MMOL/L (20-26); ABG Oxygen Saturation 97.3 % (95-100); ABG PCO2 56.8 MM HG (35-48); ABG PH 7.291 (7.35-7.45); ABG TCO2 25.8 MMOL/L (23-27)
[2020-10-27] MEDS: SODIUM BICARB INJ 50 MEQ in DEXTROSE 5% 1,000 ML IV SCH (05:03)
[2020-10-27 05:25] LABS: Basophils % 0.1 % (0.0-0.8); Hematocrit 24.2 VOL% (42.0-52.0); Hemoglobin 7.8 GM/DL (14.0-18.0); Immature Granulocytes Absolute 0.29 #; Lymphocytes # 0.2 10*3/uL (1.4-4.0); Lymphocytes % 1.2 % (21.2-54.2); Mean Corpuscular HGB Conc 32.2 GM/DL (32-36); Mean Corpuscular Volume 96.8 FL (87-102); Mean Platelet Volume 12.9 FL (9.6-12.0); Monocytes % 3.8 % (1.7-12.7); Neutrophils % 92.9 % (38.7-73.9); Platelet Count 120 T/CUMM (130-400); Red Cell Distribution Width 14.4 % (9.3-17.3); White Blood Count 14.4 T/CUMM (4-12)
[2020-10-27 06:07] LABS: Lymphocytes 2 % (20-55); Platelet Estimate Normal; Segmented Neutrophils 96 % (50-85); Total Cells Counted 100
[2020-10-27 06:08] LABS: Calcium 7.8 MG/DL (8.5-10.1); Hypochromasia 1+; Osmolality,Calculated 343.1 MOS/KG (273-304)
[2020-10-27] MEDS: fentaNYL INJ 2,500 MCG in DEXTROSE 5% 75 ML IV PRN ×2 (07:59→20:15)
[2020-10-27] MEDS: MIDAZOLAM 100 MG in SODIUM CHLORIDE 0.9% 80 ML IV PRN ×2 (07:59→19:32)
[2020-10-27] MEDS: ASPIRIN CHEW 81 MG TABLET PO SCH (08:15)
[2020-10-27] MEDS: ASCORBIC ACID 500 MG TABLET PO SCH ×2 (08:15→20:39)
[2020-10-27] MEDS: CHOLECALCIFEROL 1,000 UNIT TABLET PO SCH (08:15)
[2020-10-27] MEDS: DOCUSATE SODIUM 100 MG/10 ML UDCUP PO SCH ×2 (08:15→20:39)
[2020-10-27] MEDS: FAMOTIDINE 20 MG TABLET PO SCH (08:16)
[2020-10-27] MEDS: CETIRIZINE 10 MG TABLET PO SCH (08:16)
[2020-10-27] MEDS: FINASTERIDE 5 MG TABLET PO SCH (08:16)
[2020-10-27] MEDS: PIPERACILLIN/TAZOBACTAM 3,375 MG in SODIUM CHLORIDE 0.9% 100 ML IV SCH ×2 (11:46→22:39)
[2020-10-27] MEDS: DEXTROSE 5% 1,000 ML IV SCH ×2 (11:47→22:39)
[2020-10-27] MEDS: PHENYLEPHRINE INJ 160 MG in DEXTROSE 5% 234 ML IV PRN (15:21)
[2020-10-27] MEDS: ENOXAPARIN 100 MG/ML SYRINGE SUBCUT SCH (17:01)
[2020-10-27] MEDS: ATORVASTATIN 10 MG TABLET PO SCH (20:39)
[2020-10-28] MEDS: METOCLOPRAMIDE 10 MG/2 ML VIAL IV SCH ×4 (00:40→17:57)
[2020-10-28] MEDS: INSULIN LISPRO 100 UNIT/ML SUBCUT SCH ×4 (00:40→17:28)
[2020-10-28] MEDS: ALBUTEROL INHALER 18 GM INH SCH ×4 (01:07→18:00)
[2020-10-28] MEDS: methylPREDNISolone SOD SUC 40 MG/1 ML VIAL IV SCH ×4 (01:07→17:55)
[2020-10-28 04:24] LABS: ABG Base Excess 0.9 MMOL/L (-2.5-2.5); ABG HCO3 27.8 MMOL/L (20-26); ABG Oxygen Saturation 91.6 % (95-100); ABG PCO2 59.2 MM HG (35-48); ABG PO2 70.6 MM HG (80-95); ABG TCO2 29.6 MMOL/L (23-27); Allen Test Positive; Pt O2 Delivery Device Ventilator
[2020-10-28 04:36] LABS: Basophils % 0.1 % (0.0-0.8); Hematocrit 22.4 VOL% (42.0-52.0); Hemoglobin 7.2 GM/DL (14.0-18.0); Immature Granulocytes % 2.7 %; Immature Granulocytes Absolute 0.51 #; Lymphocytes # 0.3 10*3/uL (1.4-4.0); Lymphocytes % 1.4 % (21.2-54.2); Mean Corpuscular HGB Conc 32.1 GM/DL (32-36); Mean Corpuscular Volume 97.8 FL (87-102); Monocytes % 3.2 % (1.7-12.7); NRBC # 0.02 10*3/uL; Neutrophils % 92.6 % (38.7-73.9); Platelet Count 117 T/CUMM (130-400); Red Blood Count 2.29 MC/CUMM (3.8-5.5); Red Cell Distribution Width 14.9 % (9.3-17.3); White Blood Count 19.2 T/CUMM (4-12)
[2020-10-28 04:58] LABS: Calcium 7.7 MG/DL (8.5-10.1); Osmolality,Calculated 339.4 MOS/KG (273-304)
[2020-10-28 05:01] LABS: Hypochromasia 2+; Lymphocytes 1 % (20-55); Microcytosis 1+; Nucleated Red Blood Cells 1 (0-5); Platelet Estimate Decreased; Segmented Neutrophils 96 % (50-85); Total Cells Counted 100
[2020-10-28] MEDS: MIDAZOLAM 100 MG in SODIUM CHLORIDE 0.9% 80 ML IV PRN ×2 (06:47→18:12)
[2020-10-28] MEDS: CHOLECALCIFEROL 1,000 UNIT TABLET PO SCH (08:33)
[2020-10-28] MEDS: CETIRIZINE 10 MG TABLET PO SCH (08:33)
[2020-10-28] MEDS: DOCUSATE SODIUM 100 MG/10 ML UDCUP PO SCH ×2 (08:33→20:13)
[2020-10-28] MEDS: FAMOTIDINE 20 MG TABLET PO SCH (08:33)
[2020-10-28] MEDS: ASCORBIC ACID 500 MG TABLET PO SCH ×2 (08:33→20:13)
[2020-10-28] MEDS: FINASTERIDE 5 MG TABLET PO SCH (08:33)
[2020-10-28] MEDS: ASPIRIN CHEW 81 MG TABLET PO SCH (08:33)
[2020-10-28] MEDS: fentaNYL INJ 2,500 MCG in DEXTROSE 5% 75 ML IV PRN ×2 (09:08→21:29)
[2020-10-28] MEDS: DEXTROSE 5% 1,000 ML IV SCH (09:44)
[2020-10-28] MEDS: PIPERACILLIN/TAZOBACTAM 3,375 MG in SODIUM CHLORIDE 0.9% 100 ML IV SCH ×2 (11:25→22:31)
[2020-10-28] MEDS: PHENYLEPHRINE INJ 160 MG in DEXTROSE 5% 234 ML IV PRN (12:06)
[2020-10-28] MEDS: ENOXAPARIN 100 MG/ML SYRINGE SUBCUT SCH (15:45)
[2020-10-28] MEDS: ATORVASTATIN 10 MG TABLET PO SCH (20:13)
[2020-10-29] MEDS: METOCLOPRAMIDE 10 MG/2 ML VIAL IV SCH ×4 (00:39→17:52)
[2020-10-29] MEDS: DEXTROSE 5% 1,000 ML IV SCH ×2 (01:13→20:47)
[2020-10-29] MEDS: INSULIN LISPRO 100 UNIT/ML SUBCUT SCH ×4 (01:14→18:23)
[2020-10-29] MEDS: ALBUTEROL INHALER 18 GM INH SCH ×4 (01:15→20:47)
[2020-10-29] MEDS: methylPREDNISolone SOD SUC 40 MG/1 ML VIAL IV SCH ×3 (01:15→17:51)
[2020-10-29 04:39] LABS: Hematocrit 19.9 VOL% (42.0-52.0); Immature Granulocytes % 2.7 %; Immature Granulocytes Absolute 0.59 #; Lymphocytes # 0.4 10*3/uL (1.4-4.0); Lymphocytes % 1.6 % (21.2-54.2); Mean Corpuscular HGB Conc 30.7 GM/DL (32-36); Mean Corpuscular Volume 98.5 FL (87-102); Mean Platelet Volume 13.4 FL (9.6-12.0); Monocytes % 2.9 % (1.7-12.7); NRBC # 0.03 10*3/uL; Neutrophils % 92.8 % (38.7-73.9); Platelet Count 123 T/CUMM (130-400); Red Blood Count 2.02 MC/CUMM (3.8-5.5); Red Cell Distribution Width 14.6 % (9.3-17.3); White Blood Count 21.8 T/CUMM (4-12)
[2020-10-29 04:49] LABS: Hemoglobin 6.1 GM/DL (14.0-18.0)
[2020-10-29 04:49] LABS: ABG Base Excess -1.4 MMOL/L (-2.5-2.5); ABG HCO3 23.2 MMOL/L (20-26); ABG Oxygen Saturation 99.4 % (95-100); ABG PCO2 59.7 MM HG (35-48); ABG PH 7.248 (7.35-7.45); ABG TCO2 25.3 MMOL/L (23-27); Allen Test Positive; Pt O2 Delivery Device Ventilator
[2020-10-29] MEDS ORDERED: SODIUM CHLORIDE 0.9% 1,000 ML IV PRN (04:53)
[2020-10-29 04:54] LABS: Calcium 7.6 MG/DL (8.5-10.1); Osmolality,Calculated 340.8 MOS/KG (273-304)
[2020-10-29 05:10] LABS: INR 3.8
[2020-10-29 05:13] LABS: Band Neutrophils 2 % (0-10); Platelet Estimate Normal; Segmented Neutrophils 98 % (50-85)
[2020-10-29 05:15] LABS: Hypochromasia 2+
[2020-10-29 05:16] LABS: Total Cells Counted 100
[2020-10-29 05:18] LABS: PT Patient Result 38.4 SECS (9.8-11.9); Partial Thromboplastin Time 78.3 SECS (23.9-33.8)
[2020-10-29] MEDS: MIDAZOLAM 100 MG in SODIUM CHLORIDE 0.9% 80 ML IV PRN ×2 (06:20→20:50)
[2020-10-29] MEDS: DOCUSATE SODIUM 100 MG/10 ML UDCUP PO SCH ×2 (10:44→20:45)
[2020-10-29] MEDS: FAMOTIDINE 20 MG TABLET PO SCH (10:44)
[2020-10-29] MEDS: ASPIRIN CHEW 81 MG TABLET PO SCH (10:44)
[2020-10-29] MEDS: CHOLECALCIFEROL 1,000 UNIT TABLET PO SCH (10:45)
[2020-10-29] MEDS: FINASTERIDE 5 MG TABLET PO SCH (10:45)
[2020-10-29] MEDS: ASCORBIC ACID 500 MG TABLET PO SCH ×2 (10:45→20:45)
[2020-10-29] MEDS: CETIRIZINE 10 MG TABLET PO SCH (10:46)
[2020-10-29] MEDS: PHENYLEPHRINE INJ 160 MG in DEXTROSE 5% 234 ML IV PRN (11:10)
[2020-10-29] MEDS: PIPERACILLIN/TAZOBACTAM 3,375 MG in SODIUM CHLORIDE 0.9% 100 ML IV SCH ×2 (12:19→23:48)
[2020-10-29] MEDS: fentaNYL INJ 2,500 MCG in DEXTROSE 5% 75 ML IV PRN ×2 (13:24→22:32)
[2020-10-29] MEDS: ATORVASTATIN 10 MG TABLET PO SCH (20:45)
[2020-10-29] MEDS: PANTOPRAZOLE 40 MG VIAL IV SCH (21:24)
[2020-10-30] MEDS: METOCLOPRAMIDE 10 MG/2 ML VIAL IV SCH ×4 (00:50→18:05)
[2020-10-30] MEDS: methylPREDNISolone SOD SUC 40 MG/1 ML VIAL IV SCH ×3 (00:52→18:01)
[2020-10-30] MEDS: INSULIN LISPRO 100 UNIT/ML SUBCUT SCH ×4 (02:14→17:45)
[2020-10-30] MEDS: ALBUTEROL INHALER 18 GM INH SCH ×4 (02:15→18:39)
[2020-10-30 03:01] LABS: ABG Base Excess -2.1 MMOL/L (-2.5-2.5); ABG HCO3 24.8 MMOL/L (20-26); ABG Oxygen Saturation 97.3 % (95-100); ABG PCO2 53.9 MM HG (35-48); ABG PO2 111.9 MM HG (80-95); ABG TCO2 26.4 MMOL/L (23-27)
[2020-10-30 04:56] LABS: Basophils % 0.1 % (0.0-0.8); Hematocrit 23.5 VOL% (42.0-52.0); Hemoglobin 7.6 GM/DL (14.0-18.0); Immature Granulocytes % 3.6 %; Immature Granulocytes Absolute 0.75 #; Lymphocytes # 0.4 10*3/uL (1.4-4.0); Lymphocytes % 1.7 % (21.2-54.2); Mean Corpuscular HGB Conc 32.3 GM/DL (32-36); Mean Corpuscular Volume 95.5 FL (87-102); Mean Platelet Volume 13.3 FL (9.6-12.0); Monocytes % 2.5 % (1.7-12.7); NRBC # 0.05 10*3/uL; Neutrophils % 92.1 % (38.7-73.9); Platelet Count 121 T/CUMM (130-400); Red Blood Count 2.46 MC/CUMM (3.8-5.5); Red Cell Distribution Width 15.9 % (9.3-17.3); White Blood Count 20.9 T/CUMM (4-12)
[2020-10-30 05:09] LABS: Bilirubin,Total 0.7 MG/DL (0.2-1.0); Calcium 7.6 MG/DL (8.5-10.1); Osmolality,Calculated 342.7 MOS/KG (273-304); Total Protein 5.3 G/DL (6.4-8.3)
[2020-10-30 05:37] LABS: Hypochromasia 2+; Lymphocytes 3 % (20-55); Microcytosis 1+; Segmented Neutrophils 94 % (50-85); Total Cells Counted 100
[2020-10-30] MEDS: fentaNYL INJ 2,500 MCG in DEXTROSE 5% 75 ML IV PRN ×2 (09:37→20:40)
[2020-10-30] MEDS: DEXTROSE 5% 1,000 ML IV SCH (09:37)
[2020-10-30] MEDS: MIDAZOLAM 100 MG in SODIUM CHLORIDE 0.9% 80 ML IV PRN (09:37)
[2020-10-30] MEDS: DOCUSATE SODIUM 100 MG/10 ML UDCUP PO SCH ×2 (09:47→21:23)
[2020-10-30] MEDS: CHOLECALCIFEROL 1,000 UNIT TABLET PO SCH (09:48)
[2020-10-30] MEDS: FINASTERIDE 5 MG TABLET PO SCH (09:48)
[2020-10-30] MEDS: ASCORBIC ACID 500 MG TABLET PO SCH ×2 (09:48→21:24)
[2020-10-30] MEDS: CETIRIZINE 10 MG TABLET PO SCH (09:48)
[2020-10-30] MEDS: PANTOPRAZOLE 40 MG VIAL IV SCH ×2 (09:49→21:24)
[2020-10-30] MEDS: ASPIRIN CHEW 81 MG TABLET PO SCH (10:25)
[2020-10-30] MEDS: PIPERACILLIN/TAZOBACTAM 3,375 MG in SODIUM CHLORIDE 0.9% 100 ML IV SCH ×2 (11:52→22:58)
[2020-10-30] MEDS: PHENYLEPHRINE INJ 160 MG in DEXTROSE 5% 234 ML IV PRN (18:10)
[2020-10-30] MEDS: ATORVASTATIN 10 MG TABLET PO SCH (21:24)
[2020-10-31] MEDS: methylPREDNISolone SOD SUC 40 MG/1 ML VIAL IV SCH ×3 (00:43→16:09)
[2020-10-31] MEDS: INSULIN LISPRO 100 UNIT/ML SUBCUT SCH ×4 (00:44→18:07)
[2020-10-31] MEDS: METOCLOPRAMIDE 10 MG/2 ML VIAL IV SCH ×4 (00:44→18:20)
[2020-10-31] MEDS: MIDAZOLAM 100 MG in SODIUM CHLORIDE 0.9% 80 ML IV PRN ×2 (01:53→14:51)
[2020-10-31] MEDS: ALBUTEROL INHALER 18 GM INH SCH ×4 (01:57→18:20)
[2020-10-31 04:21] LABS: ABG Base Excess -2.8 MMOL/L (-2.5-2.5); ABG Oxygen Saturation 97.5 % (95-100); ABG PCO2 56.2 MM HG (35-48); ABG PH 7.251 (7.35-7.45); ABG TCO2 23.5 MMOL/L (23-27); Allen Test Positive; Pt O2 Delivery Device Ventilator
[2020-10-31 05:31] LABS: Basophils % 0.1 % (0.0-0.8); Hematocrit 21.2 VOL% (42.0-52.0); Immature Granulocytes % 2.9 %; Immature Granulocytes Absolute 0.41 #; Lymphocytes # 0.2 10*3/uL (1.4-4.0); Lymphocytes % 1.2 % (21.2-54.2); Mean Corpuscular HGB Conc 32.1 GM/DL (32-36); Mean Corpuscular Volume 96.8 FL (87-102); Monocytes % 2.9 % (1.7-12.7); NRBC # 0.04 10*3/uL; Neutrophils % 92.9 % (38.7-73.9); Red Blood Count 2.19 MC/CUMM (3.8-5.5); Red Cell Distribution Width 15.5 % (9.3-17.3); White Blood Count 14.1 T/CUMM (4-12)
[2020-10-31 05:32] LABS: Hemoglobin 6.8 GM/DL (14.0-18.0); Platelet Count 96 T/CUMM (130-400)
[2020-10-31 05:55] LABS: Albumin 1.8 G/DL (3.4-5.0); Bilirubin,Total 0.6 MG/DL (0.2-1.0); Calcium 7.5 MG/DL (8.5-10.1); Osmolality,Calculated 352.3 MOS/KG (273-304)
[2020-10-31 06:18] LABS: Band Neutrophils 1 % (0-10); Lymphocytes 2 % (20-55); Platelet Estimate Decreased; Segmented Neutrophils 95 % (50-85); Total Cells Counted 100
[2020-10-31 06:19] LABS: Hypochromasia 2+; Microcytosis 1+; Ovalocytes Slight
[2020-10-31] MEDS: fentaNYL INJ 2,500 MCG in DEXTROSE 5% 75 ML IV PRN ×2 (06:47→17:23)
[2020-10-31] MEDS: DEXTROSE 5% 1,000 ML IV SCH ×2 (06:47→14:53)
[2020-10-31] MEDS: ASCORBIC ACID 500 MG TABLET PO SCH ×2 (08:05→21:34)
[2020-10-31] MEDS: CETIRIZINE 10 MG TABLET PO SCH (08:05)
[2020-10-31] MEDS: DOCUSATE SODIUM 100 MG/10 ML UDCUP PO SCH ×2 (08:05→21:34)
[2020-10-31] MEDS: CHOLECALCIFEROL 1,000 UNIT TABLET PO SCH (08:05)
[2020-10-31] MEDS: FINASTERIDE 5 MG TABLET PO SCH (08:05)
[2020-10-31] MEDS: PANTOPRAZOLE 40 MG VIAL IV SCH ×2 (08:06→21:06)
[2020-10-31] MEDS: ASPIRIN CHEW 81 MG TABLET PO SCH (08:10)
[2020-10-31] MEDS ORDERED: SODIUM CHLORIDE 0.9% 1,000 ML IV PRN (08:54)
[2020-10-31] MEDS: PIPERACILLIN/TAZOBACTAM 3,375 MG in SODIUM CHLORIDE 0.9% 100 ML IV SCH (09:50)
[2020-10-31] MEDS: ATORVASTATIN 10 MG TABLET PO SCH (21:05)
[2020-10-31] MEDS: POLYETHYLENE GLYCOL POWDER 17 GM PACK PO SCH (21:34)
[2020-11-01] MEDS: INSULIN LISPRO 100 UNIT/ML SUBCUT SCH ×5 (00:22→23:42)
[2020-11-01] MEDS: METOCLOPRAMIDE 10 MG/2 ML VIAL IV SCH ×4 (00:22→17:55)
[2020-11-01] MEDS: methylPREDNISolone SOD SUC 40 MG/1 ML VIAL IV SCH ×3 (00:22→12:19)
[2020-11-01] MEDS: ALBUTEROL INHALER 18 GM INH SCH ×2 (02:25→07:08)
[2020-11-01] MEDS ORDERED: DIGOXIN 0.5 MG/2 ML AMP IV ONE (03:41)
[2020-11-01] MEDS ORDERED: AMIODARONE INJ 450 MG in DEXTROSE 5% 241 ML IV SCH (04:00)
[2020-11-01] MEDS ORDERED: AMIODARONE INJ 150 MG in DEXTROSE 5% 100 ML IV ONE (04:00)
[2020-11-01] MEDS ORDERED: AMIODARONE 450 MG/9 ML VIAL IV ONE (04:01)
[2020-11-01] MEDS ORDERED: AMIODARONE 150 MG/3 ML VIAL ONE (04:01)
[2020-11-01] MEDS: fentaNYL INJ 2,500 MCG in DEXTROSE 5% 75 ML IV PRN ×2 (04:46→15:47)
[2020-11-01 05:01] LABS: ABG Base Excess -6.7 MMOL/L (-2.5-2.5); ABG HCO3 18.9 MMOL/L (20-26); ABG PCO2 38.3 MM HG (35-48); ABG PH 7.311 (7.35-7.45); ABG PO2 148.7 MM HG (80-95); ABG TCO2 20.1 MMOL/L (23-27)
[2020-11-01 05:04] LABS: Basophils % 0.1 % (0.0-0.8); Hematocrit 27.9 VOL% (42.0-52.0); Immature Granulocytes % 2.1 %; Immature Granulocytes Absolute 0.25 #; Lymphocytes # 0.2 10*3/uL (1.4-4.0); Lymphocytes % 1.4 % (21.2-54.2); Mean Corpuscular HGB Conc 32.3 GM/DL (32-36); Mean Corpuscular Volume 93.9 FL (87-102); Mean Platelet Volume 12.7 FL (9.6-12.0); Monocytes % 4.6 % (1.7-12.7); NRBC # 0.02 10*3/uL; Neutrophils % 91.8 % (38.7-73.9); Red Cell Distribution Width 15.5 % (9.3-17.3); White Blood Count 11.8 T/CUMM (4-12)
[2020-11-01 05:05] LABS: Red Blood Count 2.97 MC/CUMM (3.8-5.5)
[2020-11-01 05:06] LABS: Platelet Count 83 T/CUMM (130-400)
[2020-11-01 05:27] LABS: Hypochromasia Slight; Lymphocytes 1 % (20-55); Metamyelocytes 1 %; Platelet Estimate Decreased; Segmented Neutrophils 95 % (50-85); Total Cells Counted 100
[2020-11-01 05:28] LABS: Bilirubin,Total 0.6 MG/DL (0.2-1.0); Calcium 7.2 MG/DL (8.5-10.1); Osmolality,Calculated 358.4 MOS/KG (273-304); Total Protein 5.4 G/DL (6.4-8.3)
[2020-11-01] MEDS: DEXTROSE 5% 1,000 ML IV SCH (06:29)
[2020-11-01] MEDS: CETIRIZINE 10 MG TABLET PO SCH (08:55)
[2020-11-01] MEDS: DOCUSATE SODIUM 100 MG/10 ML UDCUP PO SCH ×2 (08:55→20:25)
[2020-11-01] MEDS: POLYETHYLENE GLYCOL POWDER 17 GM PACK PO SCH (08:55)
[2020-11-01] MEDS: ASPIRIN CHEW 81 MG TABLET PO SCH (08:55)
[2020-11-01] MEDS: ASCORBIC ACID 500 MG TABLET PO SCH ×2 (08:55→20:25)
[2020-11-01] MEDS: FINASTERIDE 5 MG TABLET PO SCH (08:55)
[2020-11-01] MEDS: CHOLECALCIFEROL 1,000 UNIT TABLET PO SCH (08:55)
[2020-11-01] MEDS: PANTOPRAZOLE 40 MG VIAL IV SCH (08:56)
[2020-11-01] MEDS ORDERED: FAMOTIDINE 20 MG/2 ML VIAL IV SCH (10:30)
[2020-11-01] MEDS: AMIODARONE INJ 450 MG in DEXTROSE 5% 241 ML IV SCH (11:19)
[2020-11-01] MEDS: MIDAZOLAM 100 MG in SODIUM CHLORIDE 0.9% 80 ML IV PRN (14:00)
[2020-11-01] MEDS: FAMOTIDINE 20 MG/2 ML VIAL IV SCH (15:50)
[2020-11-01 17:16] LABS: Bilirubin,Urine Negative (Negative); Blood, Urine Large mg/dL (Negative); Glucose,Urine (UA) Negative (Negative); Ketones,Urine Negative (Negative); Mucus,Urine Occasional /LPF (Occasional); Nitrite,Urine Negative (Negative); Protein,Urine 30 MG/DL; RBC,Urine 613 /HPF (0-4); Squamous Epithelial Cell,Urine Occasional /HPF (0-10); Urine Appearance CLOUDY (Clear); Urine Color Yellow (Yellow); Urine Specific Gravity 1.013 (1.001-1.035); Urine Urobilinogen < 2.0 EU/DL (0.2-1.0); WBC,Urine 19 /HPF (0-6)
[2020-11-01] MEDS: ATORVASTATIN 10 MG TABLET PO SCH (20:25)
[2020-11-01] MEDS ORDERED: PANTOPRAZOLE 40 MG VIAL IV SCH (21:00)
[2020-11-02] MEDS: METOCLOPRAMIDE 10 MG/2 ML VIAL IV SCH ×4 (00:25→17:45)
[2020-11-02] MEDS: methylPREDNISolone SOD SUC 40 MG/1 ML VIAL IV SCH ×2 (00:27→11:45)
[2020-11-02] MEDS: AMIODARONE INJ 450 MG in DEXTROSE 5% 241 ML IV SCH (02:15)
[2020-11-02] MEDS: MIDAZOLAM 100 MG in SODIUM CHLORIDE 0.9% 80 ML IV PRN ×2 (02:30→14:02)
[2020-11-02] MEDS: fentaNYL INJ 2,500 MCG in DEXTROSE 5% 75 ML IV PRN ×2 (02:30→17:26)
[2020-11-02] MEDS: DEXTROSE 5% 1,000 ML IV SCH ×2 (03:00→23:38)
[2020-11-02 04:40] LABS: ABG Base Excess -4.1 MMOL/L (-2.5-2.5); ABG HCO3 23.2 MMOL/L (20-26); ABG Oxygen Saturation 98.2 % (95-100); ABG PCO2 54.9 MM HG (35-48); ABG PH 7.243 (7.35-7.45); ABG TCO2 24.8 MMOL/L (23-27); Allen Test Positive; Pt O2 Delivery Device Ventilator
[2020-11-02 05:05] LABS: Basophils % 0.1 % (0.0-0.8); Hematocrit 24.3 VOL% (42.0-52.0); Hemoglobin 7.9 GM/DL (14.0-18.0); Immature Granulocytes % 1.7 %; Lymphocytes # 0.1 10*3/uL (1.4-4.0); Lymphocytes % 0.7 % (21.2-54.2); Mean Corpuscular HGB Conc 32.5 GM/DL (32-36); Mean Corpuscular Volume 96.4 FL (87-102); Mean Platelet Volume 12.7 FL (9.6-12.0); Monocytes % 3.4 % (1.7-12.7); NRBC # 0.02 10*3/uL; Neutrophils % 94.1 % (38.7-73.9); Red Blood Count 2.52 MC/CUMM (3.8-5.5); Red Cell Distribution Width 15.5 % (9.3-17.3); White Blood Count 11.8 T/CUMM (4-12)
[2020-11-02 05:21] LABS: Platelet Count 71 T/CUMM (130-400)
[2020-11-02 05:25] LABS: Albumin 1.8 G/DL (3.4-5.0); Bilirubin,Total 0.9 MG/DL (0.2-1.0); Calcium 7.2 MG/DL (8.5-10.1); Ferritin 552.4 ng/ml (26-388); Osmolality,Calculated 356.6 MOS/KG (273-304); Total Protein 4.7 G/DL (6.4-8.3)
[2020-11-02 05:37] LABS: Lymphocytes 3 % (20-55); Platelet Estimate Decreased; Segmented Neutrophils 95 % (50-85); Total Cells Counted 100
[2020-11-02 05:38] LABS: Hypochromasia 1+
[2020-11-02] MEDS: INSULIN LISPRO 100 UNIT/ML SUBCUT SCH ×3 (05:56→17:37)
[2020-11-02 07:30] LABS: Free T4 (Free Thyroxine) 0.39 NG/DL (0.76-1.46); Thyroid Stimulating Hormone 0.686 uIU/ml (0.358-3.74)
[2020-11-02] MEDS: ASCORBIC ACID 500 MG TABLET PO SCH ×3 (08:21→20:01)
[2020-11-02] MEDS: DOCUSATE SODIUM 100 MG/10 ML UDCUP PO SCH ×3 (08:21→20:01)
[2020-11-02] MEDS: POLYETHYLENE GLYCOL POWDER 17 GM PACK PO SCH ×2 (08:21→09:34)
[2020-11-02] MEDS: CHOLECALCIFEROL 1,000 UNIT TABLET PO SCH ×2 (08:21→09:35)
[2020-11-02] MEDS: FINASTERIDE 5 MG TABLET PO SCH ×2 (08:21→09:34)
[2020-11-02] MEDS ORDERED: PIPERACILLIN/TAZOBACTAM 3,375 MG in SODIUM CHLORIDE 0.9% 100 ML IV SCH (09:30)
[2020-11-02] MEDS: MEROPENEM 500 MG in SODIUM CHLORIDE 0.9% 100 ML IV SCH (10:51)
[2020-11-02] MEDS: FAMOTIDINE 20 MG/2 ML VIAL IV SCH (13:43)
[2020-11-02] MEDS ORDERED: VANCOMYCIN INJ 1,250 MG in SODIUM CHLORIDE 0.9% 250 ML IV PRN (14:08)
[2020-11-02] MEDS ORDERED: VANCOMYCIN INJ 1,750 MG in SODIUM CHLORIDE 0.9% 500 ML IV ONE (15:00)
[2020-11-02] MEDS: MICAFUNGIN 100 MG in SODIUM CHLORIDE 0.9% 100 ML IV SCH (16:12)
[2020-11-02] MEDS: ATORVASTATIN 10 MG TABLET PO SCH (20:01)
[2020-11-03] MEDS: INSULIN LISPRO 100 UNIT/ML SUBCUT SCH ×4 (00:01→18:13)
[2020-11-03] MEDS: methylPREDNISolone SOD SUC 40 MG/1 ML VIAL IV SCH ×2 (00:24→12:55)
[2020-11-03] MEDS: METOCLOPRAMIDE 10 MG/2 ML VIAL IV SCH ×4 (00:26→19:13)
[2020-11-03] MEDS: MIDAZOLAM 100 MG in SODIUM CHLORIDE 0.9% 80 ML IV PRN ×2 (02:15→12:59)
[2020-11-03] MEDS: DEXTROSE 5% 1,000 ML IV SCH ×2 (04:20→19:28)
[2020-11-03 04:37] LABS: Basophils % 0.1 % (0.0-0.8); Hematocrit 25.5 VOL% (42.0-52.0); Hemoglobin 8.3 GM/DL (14.0-18.0); Immature Granulocytes % 1.5 %; Lymphocytes # 0.1 10*3/uL (1.4-4.0); Lymphocytes % 0.5 % (21.2-54.2); Mean Corpuscular HGB Conc 32.5 GM/DL (32-36); Mean Corpuscular Volume 96.2 FL (87-102); Mean Platelet Volume 13.2 FL (9.6-12.0); Monocytes % 3.7 % (1.7-12.7); Neutrophils % 94.2 % (38.7-73.9); Red Blood Count 2.65 MC/CUMM (3.8-5.5); Red Cell Distribution Width 15.9 % (9.3-17.3); White Blood Count 19.4 T/CUMM (4-12)
[2020-11-03 04:43] LABS: Platelet Count 78 T/CUMM (130-400)
[2020-11-03 04:50] LABS: Albumin 1.9 G/DL (3.4-5.0); Bilirubin,Total 0.7 MG/DL (0.2-1.0); Calcium 7.3 MG/DL (8.5-10.1); Osmolality,Calculated 357.7 MOS/KG (273-304); Total Protein 5.1 G/DL (6.4-8.3)
[2020-11-03 04:58] LABS: ABG Base Excess -6.3 MMOL/L (-2.5-2.5); ABG HCO3 19.2 MMOL/L (20-26); ABG Oxygen Saturation 94.6 % (95-100); ABG PCO2 52.8 MM HG (35-48); ABG PH 7.221 (7.35-7.45); ABG PO2 82.4 MM HG (80-95); ABG TCO2 20.3 MMOL/L (23-27); Allen Test Positive; Pt O2 Delivery Device Ventilator
[2020-11-03 05:13] LABS: Hypochromasia 2+; Microcytosis 1+; Platelet Estimate Decreased; Segmented Neutrophils 98 % (50-85); Total Cells Counted 100
[2020-11-03 05:14] LABS: Ovalocytes Slight
[2020-11-03] MEDS ORDERED: SODIUM BICARBONATE 50 MEQ/50 ML VIAL IV ONE (08:23)
[2020-11-03] MEDS: CHOLECALCIFEROL 1,000 UNIT TABLET PO SCH (09:21)
[2020-11-03] MEDS: DOCUSATE SODIUM 100 MG/10 ML UDCUP PO SCH ×2 (09:21→21:20)
[2020-11-03] MEDS: FINASTERIDE 5 MG TABLET PO SCH (09:21)
[2020-11-03] MEDS: ASCORBIC ACID 500 MG TABLET PO SCH ×2 (09:21→21:21)
[2020-11-03] MEDS: POLYETHYLENE GLYCOL POWDER 17 GM PACK PO SCH (09:21)
[2020-11-03] MEDS: fentaNYL INJ 2,500 MCG in DEXTROSE 5% 75 ML IV PRN (09:40)
[2020-11-03] MEDS: MEROPENEM 500 MG in SODIUM CHLORIDE 0.9% 100 ML IV SCH (13:00)
[2020-11-03] MEDS: FAMOTIDINE 20 MG/2 ML VIAL IV SCH (16:16)
[2020-11-03] MEDS: MICAFUNGIN 100 MG in SODIUM CHLORIDE 0.9% 100 ML IV SCH (16:18)
[2020-11-03] MEDS: ATORVASTATIN 10 MG TABLET PO SCH (21:20)
[2020-11-04] MEDS: MIDAZOLAM 100 MG in SODIUM CHLORIDE 0.9% 80 ML IV PRN ×2 (00:58→12:00)
[2020-11-04] MEDS: INSULIN LISPRO 100 UNIT/ML SUBCUT SCH ×4 (00:58→18:49)
[2020-11-04] MEDS: methylPREDNISolone SOD SUC 40 MG/1 ML VIAL IV SCH ×2 (00:59→13:10)
[2020-11-04] MEDS: METOCLOPRAMIDE 10 MG/2 ML VIAL IV SCH ×4 (01:02→17:08)
[2020-11-04] MEDS: fentaNYL INJ 2,500 MCG in DEXTROSE 5% 75 ML IV PRN ×2 (02:22→16:04)
[2020-11-04] MEDS ORDERED: AMIODARONE INJ 150 MG in DEXTROSE 5% 100 ML IV ONE (03:00)
[2020-11-04] MEDS ORDERED: AMIODARONE INJ 450 MG in DEXTROSE 5% 241 ML IV SCH (03:00)
[2020-11-04] MEDS: AMIODARONE INJ 150 MG in DEXTROSE 5% 100 ML IV ONE ×2 (03:01→03:03)
[2020-11-04 04:04] LABS: ABG Base Excess -6.2 MMOL/L (-2.5-2.5); ABG HCO3 19.3 MMOL/L (20-26); ABG Oxygen Saturation 98.9 % (95-100); ABG PCO2 52.5 MM HG (35-48); ABG PH 7.222 (7.35-7.45); ABG TCO2 20.5 MMOL/L (23-27)
[2020-11-04 04:54] LABS: Basophils % 0.1 % (0.0-0.8); Hematocrit 23.5 VOL% (42.0-52.0); Hemoglobin 7.3 GM/DL (14.0-18.0); Immature Granulocytes % 1.3 %; Immature Granulocytes Absolute 0.23 #; Lymphocytes # 0.1 10*3/uL (1.4-4.0); Lymphocytes % 0.4 % (21.2-54.2); Mean Corpuscular HGB Conc 31.1 GM/DL (32-36); Mean Corpuscular Volume 98.3 FL (87-102); Mean Platelet Volume 13.1 FL (9.6-12.0); Monocytes % 1.7 % (1.7-12.7); Neutrophils % 96.5 % (38.7-73.9); Red Blood Count 2.39 MC/CUMM (3.8-5.5); Red Cell Distribution Width 16.1 % (9.3-17.3); White Blood Count 18.3 T/CUMM (4-12)
[2020-11-04 04:55] LABS: Platelet Count 68 T/CUMM (130-400)
[2020-11-04 05:18] LABS: Hypochromasia 2+; Microcytosis Slight; Nucleated Red Blood Cells 1 (0-5); Platelet Estimate Decreased; Segmented Neutrophils 99 % (50-85); Total Cells Counted 100
[2020-11-04 05:28] LABS: Albumin 1.8 G/DL (3.4-5.0); Bilirubin,Total 0.6 MG/DL (0.2-1.0); Calcium 7.1 MG/DL (8.5-10.1); Osmolality,Calculated 358.8 MOS/KG (273-304); Total Protein 4.8 G/DL (6.4-8.3)
[2020-11-04] MEDS: DOCUSATE SODIUM 100 MG/10 ML UDCUP PO SCH ×2 (08:07→21:32)
[2020-11-04] MEDS: POLYETHYLENE GLYCOL POWDER 17 GM PACK PO SCH (08:08)
[2020-11-04] MEDS: ASCORBIC ACID 500 MG TABLET PO SCH ×2 (08:08→21:33)
[2020-11-04] MEDS: FINASTERIDE 5 MG TABLET PO SCH (08:08)
[2020-11-04] MEDS: CHOLECALCIFEROL 1,000 UNIT TABLET PO SCH (08:09)
[2020-11-04] MEDS ORDERED: SODIUM BICARBONATE 50 MEQ/50 ML VIAL IV ONE (08:31)
[2020-11-04] MEDS ORDERED: VANCOMYCIN INJ 1,250 MG in SODIUM CHLORIDE 0.9% 250 ML IV ONE (09:00)
[2020-11-04] MEDS: DEXTROSE 5% 1,000 ML IV SCH ×2 (09:31→19:04)
[2020-11-04] MEDS: MEROPENEM 500 MG in SODIUM CHLORIDE 0.9% 100 ML IV SCH (11:04)
[2020-11-04] MEDS: AMIODARONE INJ 450 MG in DEXTROSE 5% 241 ML IV SCH (12:15)
[2020-11-04] MEDS: FAMOTIDINE 20 MG/2 ML VIAL IV SCH (13:34)
[2020-11-04 16:17] VITALS: BP 107/56
[2020-11-04] MEDS: MICAFUNGIN 100 MG in SODIUM CHLORIDE 0.9% 100 ML IV SCH (17:00)
[2020-11-04] MEDS: ATORVASTATIN 10 MG TABLET PO SCH (21:33)
[2020-11-05] MEDS: INSULIN LISPRO 100 UNIT/ML SUBCUT SCH ×3 (00:06→12:23)
[2020-11-05] MEDS: methylPREDNISolone SOD SUC 40 MG/1 ML VIAL IV SCH ×2 (00:06→12:25)
[2020-11-05] MEDS: METOCLOPRAMIDE 10 MG/2 ML VIAL IV SCH ×3 (00:06→12:25)
[2020-11-05] MEDS: MIDAZOLAM 100 MG in SODIUM CHLORIDE 0.9% 80 ML IV PRN (01:07)
[2020-11-05] MEDS: AMIODARONE INJ 450 MG in DEXTROSE 5% 241 ML IV SCH (01:07)
[2020-11-05 04:46] LABS: ABG Base Excess -5.6 MMOL/L (-2.5-2.5); ABG HCO3 21.1 MMOL/L (20-26); ABG Oxygen Saturation 89.2 % (95-100); ABG PCO2 48.2 MM HG (35-48); ABG PO2 64.7 MM HG (80-95); ABG TCO2 22.6 MMOL/L (23-27); Allen Test Positive; Pt O2 Delivery Device Ventilator
[2020-11-05 05:02] LABS: Basophils % 0.1 % (0.0-0.8); Hematocrit 21.6 VOL% (42.0-52.0); Hemoglobin 6.9 GM/DL (14.0-18.0); Immature Granulocytes % 1.2 %; Immature Granulocytes Absolute 0.24 #; Lymphocytes # 0.1 10*3/uL (1.4-4.0); Lymphocytes % 0.5 % (21.2-54.2); Mean Corpuscular HGB Conc 31.9 GM/DL (32-36); Mean Corpuscular Volume 99.1 FL (87-102); Mean Platelet Volume 13.8 FL (9.6-12.0); Monocytes % 1.8 % (1.7-12.7); Neutrophils % 96.4 % (38.7-73.9); Platelet Count 63 T/CUMM (130-400); Red Blood Count 2.18 MC/CUMM (3.8-5.5); Red Cell Distribution Width 16.8 % (9.3-17.3); White Blood Count 20.8 T/CUMM (4-12)
[2020-11-05 05:24] LABS: Lymphocytes 1 % (20-55); Segmented Neutrophils 97 % (50-85); Total Cells Counted 100
[2020-11-05 05:25] LABS: Anisocytosis 1+; Hypochromasia 1+; Microcytosis 1+; Ovalocytes Slight; Platelet Estimate Decreased
[2020-11-05 05:29] LABS: Ferritin 1485.2 ng/ml (26-388)
[2020-11-05 05:49] LABS: Albumin 1.7 G/DL (3.4-5.0); Bilirubin,Total 0.7 MG/DL (0.2-1.0); Calcium 7.1 MG/DL (8.5-10.1); Osmolality,Calculated 363.7 MOS/KG (273-304); Total Protein 4.7 G/DL (6.4-8.3)
[2020-11-05] MEDS ORDERED: SODIUM BICARBONATE 50 MEQ/50 ML VIAL IV ONE (08:45)
[2020-11-05] MEDS: FINASTERIDE 5 MG TABLET PO SCH (09:39)
[2020-11-05] MEDS: ASCORBIC ACID 500 MG TABLET PO SCH (09:39)
[2020-11-05] MEDS: POLYETHYLENE GLYCOL POWDER 17 GM PACK PO SCH (09:39)
[2020-11-05] MEDS: DOCUSATE SODIUM 100 MG/10 ML UDCUP PO SCH (09:39)
[2020-11-05] MEDS: CHOLECALCIFEROL 1,000 UNIT TABLET PO SCH (09:40)
[2020-11-05] MEDS: fentaNYL INJ 2,500 MCG in DEXTROSE 5% 75 ML IV PRN (10:03)
[2020-11-05] MEDS ORDERED: MORPHINE 4 MG/1 ML VIAL IV ONE (11:44)
[2020-11-05] MEDS ORDERED: MORPHINE 4 MG/1 ML VIAL IV PRN (11:49)
[2020-11-05] MEDS: MEROPENEM 500 MG in SODIUM CHLORIDE 0.9% 100 ML IV SCH (11:50)
== END 2020-11-05 12:16 | disposition expired | DRG 870 ==
LOC: EDBD → EDUNIT# → N.ED 13:32 → N.EDINP 15:30 → SUATTDRO 15:30 → N.2E 17:38 → N.CC 10-18 01:14
PROVIDERS: ADMIT Internal Medicine Geriatric Medicine; ATTEND Family Medicine